=== PATIENT | female | born 1975 | race African-American/Black ===

== ENCOUNTER 2019-01-02 09:38 | Emergency (ER) | payer OTHER ==
[~2019-01-02] VITALS: Ht 160 cm; Wt 77.6 kg
[2019-01-02 09:43] VITALS: BP 187/110
--- NOTE | 2019-01-02 09:53 | NUR ---
43 Y FEMALE BIB SELF C/O R THUMB PAIN 2/10 AFTER FINGER NAIL LIFTED FROM FINGER. +CMS. NO OBVIOUS DEFORMITY. BP 187/110. [id number]. BED IS DOWN, LOCKED, BED RAIL X 1, ERMD TO SEE PT. PMH- HTN RX- DENIES
--- NOTE | 2019-01-02 10:34 | NUR ---
DR LAUREANO AT BEDSIDE
[2019-01-02 10:51] VITALS: BP 195/121
--- NOTE | 2019-01-02 10:51 | NUR ---
Patient discharged with v/s stable. Written and verbal after care instructions given and explained. Patient alert, oriented and verbalized understanding of instructions. Ambulatory with steady gait. All questions addressed prior to discharge. ID band removed. Patient advised to follow up with PMD REGARDING HTN. Rx of HYDROCHLOROTHIAZIDE given. Patient educated on indication of medication including possible reaction and side effects. Opportunity to ask questions provided and answered. PT GIVEN SMOKERS HELPLINE AND RESOURCE PACKET TO QUIT SMOKING. BP 195/121, OKAY TO DISCHARGE PER DR LAUREANO. PT TO GET RX FILLED AND TAKE MEDICATION.
== END 2019-01-02 10:51 | disposition home or self-care (01) ==
LOC: MED 09:38
DX: S61.101A Unspecified open wound of right thumb with damage to nail, initial encounter (principal); I10 Essential (primary) hypertension; F12.10 Cannabis abuse, uncomplicated; F17.210 Nicotine dependence, cigarettes, uncomplicated; Z90.89 Acquired absence of other organs; X58.XXXA Exposure to other specified factors, initial encounter; Y93.89 Activity, other specified; Y92.89 Other specified places as the place of occurrence of the external cause; Y99.8 Other external cause status
CPT/HCPCS: 99283

== ENCOUNTER 2019-02-20 07:51 | Emergency (ER) | payer OTHER ==
[~2019-02-20] VITALS: Ht 160 cm; Wt 72.6 kg
[2019-02-20 07:53] VITALS: BP 160/111
--- NOTE | 2019-02-20 08:02 | NUR ---
C/O BILAT HAND ITCHINESS X 3 DAYS. PT REPORTS USING NEW LAUNDRY SOAP WHICH MAY BE THE CAUSE PER PT. NO REDNESS OR DRAINAGE NOTED TO HANDS. BED IN LOW POSITION, SIDE RAIL UP X1. PT AT BEDSIDE
--- NOTE | 2019-02-20 08:03 | NUR ---
Patient ambulated to bed 8. RN evaluating patient at bedside.
--- NOTE | 2019-02-20 08:13 | NUR ---
Dr. Collins evaluating patient at bedside.
[2019-02-20 08:57] VITALS: BP 186/98
--- NOTE | 2019-02-20 08:57 | NUR ---
Patient discharged with v/s stable. Written and verbal after care instructions given and explained. Patient alert, oriented and verbalized understanding of instructions. Ambulatory with steady gait. All questions addressed prior to discharge. ID band removed. Patient advised to follow up with PMD. Rx of TRIAMCINOLONE given. Patient educated on indication of medication including possible reaction and side effects. Opportunity to ask questions provided and answered.
== END 2019-02-20 08:57 | disposition home or self-care (01) ==
LOC: MED 07:51
DX: T78.40XA Allergy, unspecified, initial encounter (principal); L29.9 Pruritus, unspecified; L30.9 Dermatitis, unspecified; I10 Essential (primary) hypertension; X58.XXXA Exposure to other specified factors, initial encounter
CPT/HCPCS: 99283

== ENCOUNTER 2020-12-22 15:04 | Emergency (ER) | payer OTHER ==
[~2020-12-22] VITALS: Ht 160 cm; Wt 75.3 kg
[2020-12-22 15:30] VITALS: BP 164/96
--- NOTE | 2020-12-22 15:40 | NUR ---
Patient to lobby pending available bed. ERMD made aware of patient condition.
--- NOTE | 2020-12-22 15:41 | NUR ---
Advised from registration that patient left without being seen. Attempted to call for patient in lobby and outside ER doors with no response.
== END 2020-12-22 15:41 | disposition left against medical advice (07) ==
LOC: MED 15:04
DX: K92.0 Hematemesis (principal); Z53.21 Procedure and treatment not carried out due to patient leaving prior to being seen by health care provider

== ENCOUNTER 2022-03-07 07:01 | Emergency (ER) | payer OTHER ==
[~2022-03-07] VITALS: Ht 157.5 cm; Wt 76.2 kg
[2022-03-07 07:06] VITALS: BP 182/112
[2022-03-07] MEDS ORDERED: DEXAMETHASONE 10 MG/ML VIAL IM ONE (07:50)
[2022-03-07] MEDS ORDERED: FAMOTIDINE 20 MG TAB PO ONE (07:50)
[2022-03-07 08:09] VITALS: BP 160/74
== END 2022-03-07 08:14 | disposition home or self-care (01) ==
LOC: MED 07:01
DX: L23.9 Allergic contact dermatitis, unspecified cause (principal); I10 Essential (primary) hypertension; Z90.710 Acquired absence of both cervix and uterus
CPT/HCPCS: 96372; 99283; J1100

== ENCOUNTER 2022-11-28 18:54 | Emergency (ER) | payer OTHER ==
[~2022-11-28] VITALS: Ht 160 cm; Wt 77.1 kg
[2022-11-28 19:20] VITALS: BP 181/127; PULSE 94; RESP 20; TEMP 97.7; O2SAT 98
--- NOTE | 2022-11-28 20:01 | NUR ---
PT TO BED #12 Addendum: 11/28/22 at 2001 by MALICK TO BED #11
[2022-11-28 20:24] LABS: ALBUMIN 4.5 g/dL (3.4-5.0); ANION GAP 17.2 (8-16); CARBON DIOXIDE 24.8 mmol/L (21-32); CREATININE 1.1 mg/dL (0.6-1.3); TOTAL BILIRUBIN 0.8 mg/dL (0.0-1.0)
[2022-11-28 20:30] VITALS: BP 172/120; PULSE 85; RESP 12; TEMP 97.7; O2SAT 98
--- NOTE | 2022-11-28 20:30 | NUR ---
PATIENT IS A 47/F WHO CAME IN DUE TO DIZZINESS X 2 DAYS ASSOCIATED WITH NAUSEA/VOMITING/DIARRHEA AND FEVER. LAST BM: 1 DAY AGO PMHX: HTN, VERTIGO NKA
--- NOTE | 2022-11-28 20:31 | NUR ---
Patient being evaluated by physician at bedside.
--- NOTE | 2022-11-28 20:32 | NUR ---
Alecia smith in [facility] [place] - 11/28/22 at 2131 by MED ATIF EXAMINING PATIENT AT BEDSIDE.
[2022-11-28 20:40] LABS: BASOPHILS % (AUTO) 0.2 % (0.0-2.0); EOSINOPHILS % (AUTO) 0.1 % (0.0-4.0); HEMATOCRIT 48.7 % (36-48); HEMOGLOBIN 16.4 g/dL (12.0-16.0); LYMPHOCYTES # (AUTO) 1.8 K/uL (2.5-16.5); LYMPHOCYTES % (AUTO) 16.8 % (20.5-51.1); MEAN CORPUSCULAR HEMOGLOBIN 28 pg (27-31); MEAN CORPUSCULAR HGB CONC 34 g/dL (33-37); MEAN CORPUSCULAR VOLUME 82.9 fL (80-94); MONOCYTES # (AUTO) 0.9 K/uL (0.8-1.0); MONOCYTES % (AUTO) 8.2 % (1.7-9.3); NEUTROPHILS % (AUTO) 74.7 % (42.2-75.2); PLATELET COUNT (AUTO) 251 K/uL (140-450); RED BLOOD CELL COUNT(AUTO) 5.87 MIL/uL (4.20-5.40); RED CELL DISTRIBUTION WIDTH 14.1 % (11.6-13.7); WHITE BLOOD COUNT (AUTO) 10.7 K/uL (4.8-10.8)
[2022-11-28] MEDS ORDERED: NACL 0.9% 1,000 ML IV ONE (20:50)
[2022-11-28] MEDS ORDERED: ONDANSETRON 4 MG/2 ML VIAL IVP ONE (20:50)
[2022-11-28] MEDS ORDERED: MECLIZINE 25 MG TAB PO ONE (20:50)
[2022-11-28] MEDS ORDERED: POTASSIUM CHLORIDE 10 MEQ TABER PO ONE (20:50)
[2022-11-28] MEDS ORDERED: METOCLOPRAMIDE 10 MG/2 ML INJ VIAL IVP ONE (20:50)
[2022-11-28] MEDS ORDERED: MECL-303 PO (22:31)
[2022-11-28] MEDS ORDERED: ALUM355S59 PO (22:31)
[2022-11-28] MEDS ORDERED: ONDA-188 SL (22:31)
--- NOTE | 2022-11-28 23:50 | NUR ---
Patient discharged with v/s stable. Written and verbal after care instructions given and explained. Patient alert, oriented and verbalized understanding of instructions. Ambulatory with steady gait. All questions addressed prior to discharge. ID band removed. Patient advised to follow up with PMD. Rx of Maalox Advanced Suspension, Antivert and Zofran given. Patient educated on indication of medication including possible reaction and side effects. Opportunity to ask questions provided and answered.
== END 2022-11-28 23:50 | disposition home or self-care (01) ==
LOC: MED 18:54
DX: H81.11 Benign paroxysmal vertigo, right ear (principal); R11.2 Nausea with vomiting, unspecified; E86.0 Dehydration; E87.6 Hypokalemia; R19.7 Diarrhea, unspecified; I11.0 Hypertensive heart disease with heart failure; Z79.899 Other long term (current) drug therapy; Z98.890 Other specified postprocedural states
CPT/HCPCS: 36415; 80053; 85025; 93005; 96361; 96374; 96375; 99284; J2405; J2765; J8597; J7030

== ENCOUNTER 2023-12-04 17:41 | Emergency (ER) | payer OTHER ==
[~2023-12-04] VITALS: Ht 160 cm; Wt 77.1 kg
[~2023-12-04 17:41] MED LIST: ALUM355S59 PO; MECL-303 PO; ONDA-188 SL
[2023-12-04 18:00] VITALS: BP 145/110; PULSE 87; RESP 18; TEMP 97.9; O2SAT 98
[2023-12-04] MEDS ORDERED: DIPH25TA53 PO (19:19)
[2023-12-04] MEDS ORDERED: HYDR28CR67 TP (19:19)
[2023-12-04] MEDS ORDERED: METH4TAB1 PO (19:19)
== END 2023-12-04 19:24 | disposition home or self-care (01) ==
LOC: MED 17:41
DX: L25.9 Unspecified contact dermatitis, unspecified cause (principal); I10 Essential (primary) hypertension; Z79.899 Other long term (current) drug therapy
CPT/HCPCS: 99282; 99283

== ENCOUNTER 2024-01-08 11:55 | Emergency (ER) | payer OTHER ==
[~2024-01-08] VITALS: Ht 160 cm; Wt 75.7 kg
[~2024-01-08 11:55] MED LIST changes: +DIPH25TA53 PO; +HYDR28CR67 TP; +METH4TAB1 PO
[2024-01-08 12:15] VITALS: BP 185/111; PULSE 71; RESP 16; TEMP 96.8; O2SAT 99
[2024-01-08] MEDS ORDERED: HYDR-4004 PO (13:23)
[2024-01-08] MEDS: IBUPROFEN 600 MG TAB PO ONE (13:42)
[2024-01-08] MEDS: ACETAMINOPHEN 325 MG TAB PO ONE (13:42)
== END 2024-01-08 14:00 | disposition home or self-care (01) ==
LOC: MED 11:55
DX: S80.12XA Contusion of left lower leg, initial encounter (principal); I10 Essential (primary) hypertension; Z79.899 Other long term (current) drug therapy; Z79.1 Long term (current) use of non-steroidal anti-inflammatories (NSAID); X58.XXXA Exposure to other specified factors, initial encounter; Y93.89 Activity, other specified; Y92.89 Other specified places as the place of occurrence of the external cause; Y99.8 Other external cause status
CPT/HCPCS: 73590; 99283